=== PATIENT | male | born 1995 | race Caucasian/White ===

== ENCOUNTER 2025-01-16 09:53 | Emergency (ER) | payer OTHER ==
[~2025-01-16] VITALS: Ht 172.7 cm; Wt 76.0 kg
[2025-01-16 10:06] VITALS: O2SAT 100
[2025-01-16] MEDS: KETOROLAC 30MG/ML VIAL IM ONE (12:10)
[2025-01-16] MEDS: LIDOCAINE 5% PATCH TOP SCH (12:11)
[2025-01-16] MEDS: ACETAMINOPHEN 500MG TABLET PO ONE (12:12)
[2025-01-16] MEDS: ONDANSETRON 4MG ODT PO ONE (12:12)
[2025-01-16] MEDS ORDERED: ACET-2708 MT (12:25)
[2025-01-16] MEDS ORDERED: NAPR-681 MT (12:25)
[2025-01-16] MEDS ORDERED: LIDO-53 TP (12:25)
[2025-01-16 14:15] VITALS: BP 128/78; PULSE 70; RESP 14; TEMP 36.6; O2SAT 100
[2025-01-17] MEDS ORDERED: OXYC-100 MT (09:28)
== END 2025-01-16 14:16 | disposition home or self-care (01) ==
LOC: ER 09:53
DX: S42.031A Displaced fracture of lateral end of right clavicle, initial encounter for closed fracture (principal); Z91.040 Latex allergy status; Z79.899 Other long term (current) drug therapy; X58.XXXA Exposure to other specified factors, initial encounter; Y93.89 Activity, other specified; Y92.89 Other specified places as the place of occurrence of the external cause; Y99.8 Other external cause status
CPT/HCPCS: 99284; 73030; 96372; J1885; Q0162

== ENCOUNTER 2025-01-17 09:00 | Emergency (ER) | payer OTHER ==
[~2025-01-17] VITALS: Ht 170.2 cm; Wt 60.0 kg
[~2025-01-17 09:00] MED LIST: ACET-2708 MT; LIDO-53 TP; NAPR-681 MT
[2025-01-17 09:10] VITALS: TEMP 36.7; O2SAT 100
[2025-01-17] MEDS ORDERED: OXYC-100 MT (09:28)
[2025-01-17] MEDS: HYDROCODONE/ACETAMINOPHEN 5/325MG TABLET PO ONE (09:36)
[2025-01-17 09:49] VITALS: BP 134/87; PULSE 77; RESP 18; O2SAT 99
== END 2025-01-17 09:51 | disposition home or self-care (01) ==
LOC: ER 09:00
DX: S42.009A Fracture of unspecified part of unspecified clavicle, initial encounter for closed fracture (principal); Z79.1 Long term (current) use of non-steroidal anti-inflammatories (NSAID); Z79.899 Other long term (current) drug therapy; Z91.040 Latex allergy status; W10.9XXA Fall (on) (from) unspecified stairs and steps, initial encounter; Y93.89 Activity, other specified; Y92.89 Other specified places as the place of occurrence of the external cause; Y99.8 Other external cause status
CPT/HCPCS: 99283